=== PATIENT | female | born 1990 | race Caucasian/White ===

== ENCOUNTER 2018-12-20 04:55 | Emergency (ER) | payer BC, OTHER ==
--- NOTE | 2018-12-20 05:47 | ED.PDOC ---
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 Monge is a 28-year-old female who presents to the ED with chief complaint of vaginal bleeding beginning this evening. Patient indicates that her last mens trual period was approximately October 27 and she took a home test that was positive. Patient is a . This morning patient awoke and noted that she was having vaginal bleeding slightly gm than a normal menses with mild cramping. Pt has not passed any clots or tissue. This is the first time patient has exhibited these symptoms. Patient denies nausea, vomiting, fever, or any other symptoms. She indicates that her pain has essentially resolved at this time and is only a 1/10 in intensity, crampy in nature. - History of Present Illness Home Medications: Ambulatory Orders Acetaminophen W/ Codeine [Tylenol W/ CODEINE #3] 2 ea PO Q6H PRN #20 12/20/18 Review of Systems - Review of Systems Constitutional: States: no symptoms reported. Denies: chills, fever EENTM: States: no symptoms reported Respiratory: States: no symptoms reported. Denies: short of breath Gastrointestinal/Abdominal: States: no symptoms reported. Denies: abdominal pain, nausea, vomiting Genitourinary: States: see HPI, pain Musculoskeletal: States: no symptoms reported Skin: States: no symptoms reported Neurological: States: no symptoms reported All other Systems: Reviewed and Negative Physical Exam - Physical Exam General Appearance: Alert, Comfortable, No apparent distress, Obese Eyes, Ears, Nose, Throat Exam: normal ENT inspection Neck: supple Cardiovascular/Respiratory: regular rate, rhythm, no M/R/G, normal peripheral pulses, no JVD, normal breath sounds, no respiratory distress Gastrointestinal/Abdominal: normal bowel sounds, non tender, soft, no organomegaly Back Exam: normal inspection Extremity: normal range of motion, non-tender 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 This would indicate that patient has had a completed miscarriage. Ultrasound services not offered at this facility on the weekend and pelvic ultrasound has not been completed. Given the extremely low hCG value, ectopic is extremely unlikely and there is no need for patient to be transferred for pelvic ultrasound testing. She has an initial OB appointment pre-established for Saturday. Patient will call her OB doctor on Saturday to discuss events over the weekend and follow up sooner as required. I will discharge with analgesics and patient to our [facility] if symptoms worsen, to include uncontrolled bleeding or uncontrolled pain. Vital signs stable, patient NAD and looks clinically well and is safe for discharge with outpatient follow-up. Follow-up instructions, discharge instructions and return to ED precautions discussed with patient, Patient voices understanding and willingness to comply with instructions. All laboratory and radiographic results have been discussed with the patient, and all questions answered. Patient happy with plan. Departure - Departure Clinical Impression: Complete miscarriage Time of Disposition: 06:40 Disposition: Discharge to Home or Self Care Condition: Good Departure Forms: ED Discharge - Pt. Copy, Patient Portal Self Enrollment Activity: walking as tolerated Prescriptions: Acetaminophen W/ Codeine [Tylenol W/ CODEINE #3] 2 ea PO Q6H PRN #20 PRN Reason: Pain Home Medications: Ambulatory Orders Acetaminophen W/ Codeine [Tylenol W/ CODEINE #3] 2 ea PO Q6H PRN #20 12/20/18
[2018-12-20 05:51] VITALS: TEMP 97.7
[2018-12-20 06:12] VITALS: BP 126/72; O2SAT 99
== END 2018-12-20 06:45 | disposition home or self-care (01) ==
LOC: ER 04:55
DX: O03.9 Complete or unspecified spontaneous abortion without complication (principal)